=== PATIENT | male | born 1995 | race Caucasian/White ===

== ENCOUNTER 2025-02-13 08:13 | Emergency (ER) | payer BC, SELFPAY ==
[2025-02-13 08:28] VITALS: BP 149/108; PULSE 112; RESP 16; TEMP 37.1; O2SAT 99
--- NOTE | 2025-02-13 08:42 | ED.EAR ---
HPI - Ear Problem General Chief complaint: Ear Stated complaint: Ear Pain Time Seen by Provider: 02/13/25 08:33 Source: patient and RN notes reviewed Mode of arrival: ambulatory Limitations: no limitations History of Present Illness HPI Narrative: Patient presents today complaining of a one-week history of bilateral ear ringing and muffling and left ear pain. Currently rates his pain this morning 4/10 and has tried some mgyr-ezj-ixarugb ear drops without improvement. Denies any additional upper respiratory symptoms. He did some swimming a few weeks ago, but none since then. Denies active drainage. Related Data Allergies Allergy/AdvReac Type Severity Reaction Status Date / Time cefdinir Allergy Intermediate Other Verified 02/13/25 08:27 Penicillins Allergy Mild Other Verified 02/13/25 08:27 PMFSH Comments At time of signature, I have reviewed and agree with nursing past medical, surgical, social and family history unless otherwise noted. Please see nursing chart for further information. There is no relevant family history pertinent to the presenting complaint Exam Narrative: GENERAL: Well-appearing, well-nourished, and in no acute distress. HEAD: Normocephalic, atraumatic. EYES: EOMI. No redness or drainage. Conjunctivae normal. ENT: Mucous membranes pink and moist. Nares clear. No rhinorrhea. Left ear: No tragal and movement tenderness. Moderate swelling and erythema of the canal with mild white debris. TM occluded. Right ear: No movement or tragal tenderness. Mild swelling and moderate erythema of the canal with mild white debris. TM normal. NECK: Normal AROM. Supple. No lymphadenopathy. CHEST: No respiratory distress. EXTREMITIES: Normal range of motion. No edema. SKIN: Warm, dry, no rash. Capillary refill normal. Normal skin turgor. NEURO: No focal deficits. Alert and oriented x3. Gait steady. PSYCH: Normal affect. No signs of depression or anxiety. Course Course Level of Care: Express Care Visit Vital Signs Vital signs: Vital Signs Temperature 98.8 F 02/13/25 08:28 Pulse Rate 112 H 02/13/25 08:28 Respiratory Rate 16 02/13/25 08:28 Blood Pressure 149/108 H 02/13/25 08:28 Pulse Oximetry 99 02/13/25 08:28 Temperature 98.8 F 02/13/25 08:28 Pulse Rate 112 H 02/13/25 08:28 Respiratory Rate 16 02/13/25 08:28 Blood Pressure 149/108 H 02/13/25 08:28 Pulse Oximetry 99 02/13/25 08:28 Reviewed Medical Decision Making MDM Narrative Medical decision making narrative: 29-year-old male patient presents today with bilateral ear ringing, muffling, and left ear pain x1 week. Denies any additional URI symptoms. He has tried some qefl-zyv-jgqgatc drops without improvement. Upon exam, patient has bilateral canal swelling, erythema, and debris, left greater than right, consistent with bilateral otitis externa. Patient is stable for outpatient treatment. Prescription for Ciprodex sent to pharmacy. Care instructions given. Differential Diagnosis Differential Diagnosis: Otitis media, otitis externa, ruptured TM, serous otitis, cerumen impaction, foreign body Vital Signs Vital Signs: Vital Signs Temperature 98.8 F 02/13/25 08:28 Pulse Rate 112 H 02/13/25 08:28 Respiratory Rate 16 02/13/25 08:28 Blood Pressure 149/108 H 02/13/25 08:28 Pulse Oximetry 99 02/13/25 08:28 Temperature 98.8 F 02/13/25 08:28 Pulse Rate 112 H 02/13/25 08:28 Respiratory Rate 16 02/13/25 08:28 Blood Pressure 149/108 H 02/13/25 08:28 Pulse Oximetry 99 02/13/25 08:28 Critical Care Time Critical Care Time Critical Care Time: No Discharge Plan Discharge Clinical Impression: Acute otitis externa of both ears Patient Disposition: Home Condition: Stable Instructions: Swimmer's Ear (ED) Additional Instructions: You have been diagnosed with an infection in your ear canal in both ears. Please use the ear drops as directed. Keep the ears dry as possible. Do not submerge your head in standing water such as pools, hot tubs, lakes, bathtubs, until the infection has resolved. Showering is fine. Do not use anything in the ear that can be irritating such as Q-tips, ear plugs, ear buds. Take Tylenol or ibuprofen for pain, if able. Follow-up with your PCP in 3 days if symptoms are not improving. Your blood pressure was elevated above 120/80 today at Urgent Care. This puts you above the threshold for follow up. Please schedule a followup visit with your personal physician as soon as possible, for further evaluation and treatment. Even blood pressure exceeding 120/80 may indicate pre-hypertension. Patient Language: Sinhala Prescriptions: New ciprofloxacin-dexamethasone 0.3-0.1 % drops,suspension 4 drp EACH EAR Q12H 7 Days Qty: 7.5 0RF Follow-up/Referrals: PHYSICIAN,SUPPORT MERCHANDISER [Primary Care Provider] - Time of Disposition: 08:47
== END 2025-02-13 08:48 | disposition home or self-care (01) ==
PROVIDERS: Emergency Provider Nurse Practitioner
DX: H60.93 Unspecified otitis externa, bilateral (principal)
CPT/HCPCS: 99213; G0463